=== PATIENT | male | born 1950 | race Caucasian/White ===

== ENCOUNTER → 2016-11-17 | Outpatient (CLI) | payer MEDICARE ==
--- NOTE | ~2016-11-17 | XA203 ---
[facility] Service of [facility] RADIOLOGY TEXT RESULTS PATIENT: GELA CALZADA LOCATION: [facility] : 52 UNIT #: [id number] AGE: [address]: Alessandra Carpenter SEX: M ORDER DR: [id number] [facility] [address] [place], [place] [address] [id number] O MR#: [id number] Acc #: [id number] NAME: GELA CALZADA : 1950 SEX: M STUDY DATE/TIME: 11/17/2016 10:39 UNIT: [facility] ROOM: STUDY DESCRIPTION: XA Thoracentesis Attending Physician: Alessandra Carpenter A.P.R.N. Ordering Physician: Alessandra Carpenter A.P.R.N. Primary Care Physician: Ken Guan M.D. MEDICAL IMAGING REPORT This report is preliminary unless electronic signature is present EXAM Ultrasound of the right hemithorax INDICATIONS Pleural effusion. Patient does have a history of tuberculosis. PROCEDURE The risks, benefits, and alternatives to the procedure were explained to the patient, and signed, informed consent was obtained. He was seated in the upright position preliminary ultrasound of the right hemithorax was performed which showed insufficient volume of fluid for thoracentesis procedure was subsequently terminated. IMPRESSION Insufficient volume of fluid for a thoracentesis. Dictated by... Haven Ruiz M.D. THIS IS AN ELECTRONICALLY VERIFIED REPORT Haven Ruiz M.D. at 11/20/2016 4:46 PM AFF/rnr TD: 11/17/2016 23:12 JOB #: [id number] MEDICAL IMAGING REPORT Page 1 of 1 COPY
[2016-11-17 10:50] LABS: HEMOGLOBIN 12.3 gm/dL (13.0-16.0); MEAN CELL VOLUME 85.7 FL (83-96); MEAN CORPUSCULAR HEMOGLOBIN 28.5 PG (28-34); MEAN CORPUSCULAR HGB CONC 33.2 g/dL (30-36); RED BLOOD COUNT 4.32 X10e (3.90-5.60); RED CELL DISTRIBUTION WIDTH 16.9 % (11.0-15.5); WHITE BLOOD COUNT 6.5 X10e3 (4.0-10.5)
[2016-11-17 11:19] LABS: INR 0.9; PROTHROMBIN TIME (PATIENT) 9.9 SECONDS (9.6-11.5)
== END | disposition home or self-care (01) ==
LOC: CIVR 10:03
PROVIDERS: Nurse Practitioner Adult Health
DX: A15.9 Respiratory tuberculosis unspecified (principal); J44.9 Chronic obstructive pulmonary disease, unspecified
CPT/HCPCS: 36415; 76604; 85027; 85610; 85730